=== PATIENT | male | born 1950 | race Caucasian/White ===

== ENCOUNTER 2016-05-12 01:21 | Day surgery (SDC) | payer MEDICARE ==
[~2016-05-12] VITALS: Ht 188 cm; Wt 131.6 kg
[2016-05-12] VITALS (11 sets, daily range): BP systolic 105–133; BP diastolic 63–84; PULSE 58–63; RESP 12–24; O2SAT 95–97
[~2016-05-12 01:21] MED LIST: AMLO10TA3 PO; ASPI-973 PO; BENA20TA PO; CHOL10008 PO; Fish Oil PO; GLPZ5T PO; INSU100I13 SUBQ; METF-496 PO; MULT-620 PO; ROSU5TAB PO; SITA100T12 PO
[2016-05-12 06:46] LABS: BASOPHILS % (AUTO) 0.9 % (0-3); EOSINOPHILS % (AUTO) 4.8 % (0-5); MONOCYTES % (AUTO) 10.7 % (4-12); Mean Corpuscular Hemoglobin 29.7 pg (27.0-35.0); Mean Corpuscular Volume 86.1 fL (81-100); NEUTROPHILS % (AUTO) 59.6 % (40-74); Platelet Count 205 bil/L (150-400)
[2016-05-12 07:02] LABS: INR 1.04 ratio
[2016-05-12] MEDS ORDERED: VITA-242 PO (07:13)
[2016-05-12] MEDS ORDERED: 0.9% Sodium Chloride 1,000 ML ONE ×2 (07:33→07:36)
[2016-05-12] MEDS ORDERED: Heparin 1,000 Units/500 mL NS Premix IV ONE (07:36)
[2016-05-12] MEDS ORDERED: Heparin 1,000 Unit/mL 10 mL Inj ONE ×2 (07:36→08:04)
[2016-05-12] MEDS ORDERED: Verapamil 2.5 mg/mL 2 mL Inj ONE (07:54)
[2016-05-12] MEDS ORDERED: Nitroglycerin 50,000 mcg/250 mL D5W Premix IV ONE (07:54)
[2016-05-12] MEDS ORDERED: fentaNYL-PF 50 mCg/mL 2 mL Inj ONE (08:01)
[2016-05-12] MEDS ORDERED: 0.9% Sodium Chloride 1,000 ML IV PRN (08:33)
[2016-05-12] MEDS ORDERED: 0.9% Sodium Chloride 250 ML IV PRN (08:33)
[2016-05-12] MEDS ORDERED: Ondansetron 2 mg/mL 2 mL Inj IVPUSH PRN (08:35)
[2016-05-12] MEDS ORDERED: HYDROcodone-APAP 5-325 mg Tablet PO PRN (08:35)
[2016-05-12] MEDS ORDERED: Atropine 1 mg/10 mL (Code) Syringe IVPUSH PRN (08:35)
--- NOTE | 2016-05-12 10:43 | CS94 ---
[address] [address] DIAGNOSTIC CARDIAC CATHETERIZATION PATIENT: CORINA STOVALL : 1950 MR#: [id number] ADMIT: 05/12/2016 JOB ID: [id number] SERVICE DATE: 05/12/2016 PROCEDURE: 1. Retrograde left heart catheterization. 2. Selective left and right coronary angiography. 3. Left ventricular cineangiography. INDICATION: Abnormal stress test. The patient is a 65-year-old gentleman with known history of diabetes for 20 years, hypertension, hyperlipidemia and obesity. Patient was referred for abnormal EKG and cardiovascular evaluation. CONSENT: The patient was explained the risks, benefits, and alternatives of the procedure. Informed signed consent was obtained and placed in the chart. DESCRIPTION OF PROCEDURE: The patient was brought to the catheterization laboratory and placed on the catheterization table. The right radial artery was accessed in a standard manner. FL4 catheter was used to engage the left main coronary artery. Multiple views of the left coronary artery were obtained in multiple projections. FR4 catheter was used to engage the right coronary artery. Multiple views of the right coronary artery were obtained in multiple projections. A pigtail catheter was advanced over the exchange J-wire and placed in the left ventricle. Left ventricular hemodynamics were obtained. A left ventricular cineangiography was performed in the right anterior oblique view. Subsequently, the catheter was removed, and the sheath was removed. The patient was taken to the catheterization laboratory in stable condition. COMPLICATIONS: None. TOTAL FLUOROSCOPY TIME: 5.9 minutes. TOTAL CONTRAST USED: 70 cc. FINDINGS: HEMODYNAMICS: The left ventricular end-diastolic pressure was 12. There was no left ventricular to aortic gradient. CORONARY ANGIOGRAPHY: The left main coronary artery is a wide caliber vessel, which trifurcates into left anterior descending artery, left circumflex coronary artery and ramus intermedius/high obtuse marginal. The left anterior descending artery has mild luminal irregularities. The left circumflex coronary artery has mild luminal irregularities. The ramus branch again demonstrates mild luminal irregularities. Right coronary artery demonstrates mild luminal irregularities. Free of any significant stenosis. The overall left ventricular systolic function is normal and estimated at 60% to 65%. IMPRESSION: 1. Mild three-vessel coronary artery disease. 2. Normal left ventricular systolic function.
--- NOTE | 2016-05-12 11:26 | NUR ---
Discharge instructions reviewed with patient and spouse. right radial site without bleeding or hematoma. Pt ambulatory on discharge with spouse to drive him home.
== END 2016-05-12 23:59 | disposition home or self-care (01) ==
LOC: SOUO 01:21
PROVIDERS: ATTEND Internal Medicine Cardiovascular Disease
DX: I25.10 Atherosclerotic heart disease of native coronary artery without angina pectoris (principal); E78.5 Hyperlipidemia, unspecified; I10 Essential (primary) hypertension; E11.9 Type 2 diabetes mellitus without complications; Z79.82 Long term (current) use of aspirin; Z79.4 Long term (current) use of insulin; Z79.84 Long term (current) use of oral hypoglycemic drugs
CPT/HCPCS: 36415; 80048; 85025; 85610; 93005; 93458; 99152; 99153; C1729; C1769; C1894; J1644; J2250; J3010; Q9967